=== PATIENT | female | born 1935 | race Caucasian/White ===

== ENCOUNTER → 2017-02-16 | Outpatient (CLI) | payer MEDICARE, BC ==
[~2017-02-16] MED LIST: ASPIRIN 325MG325 MG PO; ATIVAN1 M1 PO; B12 PO; CLOPIDOGREL75 M2 PO; D3 5000 IU PO; DILT-XR180 MG PO; GOOD NEIGHBOR P20 M1 PO; LASIX 40MG. TAB40 MG PO; LASIX40 MG PO; LEVOTHYROXIN0.088 MG PO; LISINOPRIL 10MG10 MG PO; LISINOPRIL40 MG PO; LOVASTATIN40 MG PO; MECLIZINE HYDRO25 MG PO; POTASSIUM CHLO10 ME4 PO; PREVACID 30MG C30 M1 PO; RANITIDINE 150150 MG PO; SYNTHROID 0.1M0.1 MG PO; VERAPAMIL SR 2240 MG PO; ZANTAC 150150 MG PO; ZYRTEC ALLERGY10 MG PO; [UNRECOGNIZED DRUG - OTHER] PO
--- NOTE | 2017-02-16 14:23 | RADIOLOGY REPORT PS360 ---
[id number] VIEWS HISTORY: Follow-up fracture RT HUMERUS FX ORDERING PHYSICIAN: ASHIA HIGGINS MD PATIENT AGE: 82 years COMPARISON: 02/05/2017 FINDINGS: Minimal impacted humeral neck fracture once again noted not significant changed. Fracture line still visible. No dislocation. IMPRESSION: No change mildly impacted humeral neck fracture
== END ==
LOC: RAD 11:45
DX: M25.511 Pain in right shoulder (principal)

== ENCOUNTER → 2017-03-21 | Outpatient (CLI) | payer MEDICARE, BC ==
--- NOTE | 2017-03-21 12:23 | RADIOLOGY REPORT PS360 ---
[id number] VIEWS HISTORY: Follow-up fracture FU FX PROX HUMERUS ORDERING PHYSICIAN: ASHIA HIGGINS MD PATIENT AGE: 82 years COMPARISON: 03/01/2017 FINDINGS: Nondisplaced right humeral neck fracture once again noted with mild impaction of fracture fragments. There is good alignment is some callus formation noted developing medially. IMPRESSION: Healing nondisplaced impacted right humeral neck fracture
== END ==
LOC: RAD 11:48
DX: S42.201D Unspecified fracture of upper end of right humerus, subsequent encounter for fracture with routine healing (principal)

== ENCOUNTER → 2017-05-10 | Outpatient (CLI) | payer MEDICARE, BC ==
--- NOTE | 2017-05-10 14:29 | RADIOLOGY REPORT PS360 ---
[id number] VIEWS HISTORY: Follow-up fracture HEALING OF RT HUMERUS FX ORDERING PHYSICIAN: ASHIA HIGGINS MD PATIENT AGE: 82 years COMPARISON: 03/21/2017 FINDINGS: Healing fracture once again noted involving the right humeral neck. Fracture line still visible medially and there is mild impaction of the fracture fragments. There remains good alignment. IMPRESSION: Overall no change healing right humeral neck fracture with mild infection
--- NOTE | 2017-05-10 16:26 | CARDIOVASCULAR REPORT ---
"Venous Exam Indications: 729.81 Swelling of limb. IMPRESSIONS 1. There is no evidence of significant Reflux. 2. No evidence of deep or superficial vein thrombosis involving the left lower extremity Left lower extremity venous duplex evaluation. Doppler flow study including spectral analysis, color and sanz scale imaging. Location: Vascular laboratory. Patient status: Outpatient. Tables: Venous flow and imaging: + +-------+ + |Location |Overall|Flow properties | + +-------+ + |Left common femoral |Patent |Normal phasicity; spontaneous; | | | |normal augmentation; compressible | + +-------+ + |Left saphenofemoral junction|Patent |Compressible | + +-------+ + |Left profunda femoral |Patent |Compressible | + +-------+ + |Left femoral |Patent |Normal phasicity; spontaneous; | | | |normal augmentation; compressible | + +-------+ + |Left greater saphenous |Patent |Normal phasicity; spontaneous; | | | |normal augmentation; compressible | + +-------+ + |Left popliteal |Patent |Normal phasicity; spontaneous; | | | |normal augmentation; compressible | + +-------+ + |Left posterior tibial |Patent |Compressible | + +-------+ + |Left peroneal |Patent |Compressible | + +-------+ + |Left gastrocnemius |Patent |Compressible | + +-------+ + |Left soleal |Patent |Compressible | + +-------+ + (Report amended ) Electronically signed by: Salvador Martinez [id number]"
== END ==
LOC: RAD 13:10 → RT 13:10
DX: S42.201D Unspecified fracture of upper end of right humerus, subsequent encounter for fracture with routine healing (principal); M79.605 Pain in left leg; M79.89 Other specified soft tissue disorders